=== PATIENT | female | born 1950 | race Caucasian/White ===

== ENCOUNTER → 2018-09-14 | Outpatient (CLI) | payer MEDICARE ==
[~2018-09-14] MED LIST: ALPR0.25 PO; AZEL137S4 NAS; CHOL500050 PO; FLUT9.9S NAS; MELO15TA24 PO; ROSU5TAB PO
== END | disposition home or self-care (01) ==
LOC: CFH 09:03
PROVIDERS: ATTEND Family Medicine
DX: K76.0 Fatty (change of) liver, not elsewhere classified (principal); R94.5 Abnormal results of liver function studies
CPT/HCPCS: 76700

== ENCOUNTER → 2020-05-03 | Outpatient (CLI) | payer MEDICARE ==
[2020-05-03 09:36] LABS: HCT (SEDRATE) 44.7 % (34.6-47.8)
== END | disposition home or self-care (01) ==
LOC: STAR 09:20
PROVIDERS: ATTEND Internal Medicine Rheumatology
DX: Z01.818 Encounter for other preprocedural examination (principal); R79.1 Abnormal coagulation profile
CPT/HCPCS: 36415; 85651; 86140; 93005

== ENCOUNTER 2020-07-30 11:35 | Observation (INO) | payer MEDICARE ==
[~2020-07-30] VITALS: Ht 160 cm; Wt 59.8 kg
--- NOTE | 2020-07-30 11:59 | NUR ---
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
[2020-07-30 12:05] LABS: BASOPHILS % (AUTO) 1 % (0-1); EOSINOPHILS % (AUTO) 2 % (1-7); LYMPHOCYTES % (AUTO) 32 % (22-44); MEAN CORPUSCULAR HGB CONC 34.1 g/dL (32.4-35.8); MEAN PLATELET VOLUME 8.3 fL (7.4-10.4); MONOCYTES % (AUTO) 8 % (2-9); NEUTROPHILS % (AUTO) 57 % (42-75); PLATELET COUNT 272 x10^3/uL (130-400); RED BLOOD COUNT 4.93 x10^6/uL (3.82-5.3); RED CELL DISTRIBUTION WIDTH 14.3 % (9.6-15.2)
[2020-07-30 12:06] LABS: MD NO
[2020-07-30] MEDS ORDERED: METO-282 PO (12:12)
[2020-07-30] MEDS ORDERED: METO50TA82 PO (12:12)
[2020-07-30 12:17] LABS: ANION GAP 4 mmol/L (5-15); CALCIUM 10.1 mg/dL (8.5-10.1); CHLORIDE 108 mmol/L (98-107)
[2020-07-30 12:25] LABS: ALANINE AMINOTRANSFERASE 42 U/L (12-78); ALKALINE PHOSPHATASE 81 U/L (45-117); BILIRUBIN,TOTAL 0.7 mg/dL (0.2-1.0); CREATININE 0.71 mg/dL (0.55-1.02); TOTAL PROTEIN 7.7 g/dL (6.4-8.2); TROPONIN I < 0.015 ng/mL (0.000-0.045)
[2020-07-30] MEDS ORDERED: MORPHINE SULFATE 4 MG/ML, 1ML ONE ×2 (12:28→16:23)
[2020-07-30] MEDS ORDERED: ONDANSETRON 2MG/ML, 2ML ONE ×2 (12:28→19:19)
[2020-07-30] MEDS ORDERED: ONDANSETRON 2MG/ML, 2ML IVPush ONE (12:30)
[2020-07-30] MEDS: MORPHINE SULFATE 4 MG/ML, 1ML IVPush PRN ×2 (13:20→16:30)
--- NOTE | 2020-07-30 13:49 | NUR ---
ULTRASOUND AT BEDSIDE.
[2020-07-30] MEDS ORDERED: PANTOPRAZOLE 40 MG IV IVPush ONE (15:30)
[2020-07-30] MEDS ORDERED: ASPIRIN 81 MG TABLET CHEW PO ONE (15:30)
[2020-07-30] MEDS ORDERED: ASPIRIN 81 MG TABLET CHEW ONE (16:23)
[2020-07-30] MEDS ORDERED: PANTOPRAZOLE 40 MG IV ONE (16:23)
--- NOTE | 2020-07-30 18:37 | NUR ---
BREAK RN FOR PRIMARY RN CORI AT THIS TIME. RECEIVED REPORT. SPOUSE AT BEDSIDE. PT REQUESTING FOOD, CARDIAC DIET TRAY REQUESTED FROM DIET OFFICE. PT PROVIDED WATER, JUICE AND CRACKERS PER DR. PATTERSON, PT TOLERATING PO WELL. DENIES NEED TO USE RESTROOM. PT RESTING COMFORTABLY ON HOSPITAL BED. VSS. SB ON MONITOR. AWAITING MEAL TRAY. PT AND SPOUSE UPDATED ON POC PER REQUEST.
[2020-07-30] MEDS ORDERED: ACETAMINOPHEN 325 MG TABLET PO PRN (19:00)
[2020-07-30] MEDS ORDERED: NITROGLYCERIN 0.4 MG/SPRAY SL PRN (19:00)
[2020-07-30] MEDS ORDERED: NITROGLYCERIN 0.4 MG BOTTLE (25 TABS) SL PRN (19:00)
[2020-07-30] MEDS ORDERED: SODIUM CHLORIDE 0.9% 1,000 ML IV SCH (19:00)
[2020-07-30] MEDS ORDERED: DOCUSATE 100 MG CAPSULE PO PRN (19:00)
[2020-07-30] MEDS ORDERED: morphine SULFATE 10 MG/ML, 1ML IV PRN (19:00)
[2020-07-30] MEDS ORDERED: ENALAPRILAT 1.25 MG/ML, 2ML IVPush PRN (19:00)
--- NOTE | 2020-07-30 19:01 | NUR ---
REPORT AND TRANSFER OF CARE BACK TO PRIMARY RN CORI AT THIS TIME
[2020-07-30 19:13] LABS: CHOL/HDL RATIO 2.7; LDL/HDL RATIO 1.5 (0.5-3.0)
--- NOTE | 2020-07-30 19:15 | NUR ---
CALL TO DR. FUNES, PT IS NAUSEOUS AND VOMITING. PER DR. FUNES ZOFRAN 4MG IV Q6H PRN NAUSEA/VOMITING.
[2020-07-30] MEDS ORDERED: ONDANSETRON 2MG/ML, 2ML IVPush PRN (19:30)
[2020-07-30 20:49] VITALS: BP 148/86
[2020-07-30] MEDS ORDERED: LORazepam 2 MG/ML, 1ML IVPush ONE (21:00)
[2020-07-30] MEDS ORDERED: ATORVASTATIN 20 MG TABLET PO SCH (21:00)
[2020-07-30] MEDS: SODIUM CHLORIDE FLUSH 10ML SYR IVF SCH (21:21)
[2020-07-30 22:35] LABS: TROPONIN I < 0.015 ng/mL (0.000-0.045)
[2020-07-31 01:14] LABS: TROPONIN I < 0.015 ng/mL (0.000-0.045)
[2020-07-31 01:38] VITALS: BP 90/55
[2020-07-31] MEDS ORDERED: ASPIRIN 325 MG TABLET EC PO SCH (06:00)
[2020-07-31 07:23] VITALS: BP 106/63
[2020-07-31] MEDS: SODIUM CHLORIDE FLUSH 10ML SYR IVF SCH (08:03)
[2020-07-31] MEDS ORDERED: Azelastine Hcl Nasal 1 SPRAY) NAS SCH (09:00)
[2020-07-31] MEDS ORDERED: FLUTICASONE NASAL SPRAY 16GM NAS SCH (09:00)
[2020-07-31] MEDS ORDERED: MELOXICAM 15 MG TABLET PO SCH (09:00)
[2020-07-31] MEDS ORDERED: METOPROLOL SUCCINATE 25 MG TAB.ER.24H PO SCH (09:00)
[2020-07-31] MEDS ORDERED: REGADENOSON 0.4 MG/5 ML SYRINGE ONE (09:22)
[2020-07-31] MEDS ORDERED: SUCR1ORA5 PO (12:55)
[2020-07-31] MEDS ORDERED: OMEP-110 PO (12:55)
[2020-07-31] MEDS ORDERED: ONDA4TAB13 SL (12:55)
[2020-07-31 13:51] VITALS: BP 102/64
== END 2020-07-31 14:45 | disposition home or self-care (01) ==
LOC: ED 12:43 → INTOOBSV 15:12 → EDIP 15:12 → 5SO 20:13 → DCLOUNGE 07-31 14:28
PROVIDERS: ADMIT Family Medicine; ATTEND Family Medicine
DX: R07.89 Other chest pain (principal); I10 Essential (primary) hypertension; E78.5 Hyperlipidemia, unspecified; R11.2 Nausea with vomiting, unspecified; M25.512 Pain in left shoulder; M19.90 Unspecified osteoarthritis, unspecified site; R79.89 Other specified abnormal findings of blood chemistry; Z79.899 Other long term (current) drug therapy
CPT/HCPCS: 36415; 71045; 76700; 78452; 80053; 80061; 83690; 83735; 83880; 84443; 84484; 85025; 93005; 93017; 96361; 96374; 96375; 96376; 99285; A9502; C9113; G0378; J2060; J2270; J2405; J2785; J7030